=== PATIENT | female | born 1950 | race Caucasian/White ===

== ENCOUNTER 2024-10-18 11:04 | Outpatient (CLI) | payer MEDICARE ==
--- NOTE | 2024-10-18 14:25 | RADIOLOGY REPORT ---
CLINICAL HISTORY: Acute left knee injury. COMPARISON: None TECHNIQUE: Multisequence multiplanar MRI images of the left knee were obtained without contrast. FINDINGS: Cruciate ligaments: Edema along the course of the ACL with mild indistinctness of the ACL fibers, may be seen with mucoid degeneration or sequela of chronic sprain. No secondary signs of acute ACL injur y. PCL is intact. Extensor mechanism: Quadriceps mechanism and patellar tendon are intact. Collateral ligaments: Medial and lateral collateral ligaments are intact and otherwise unremarkable. Menisci: Attenuated, indistinct fibers of the posterior horn/ posterior root junction of the medial m eniscus, suspected obliquely oriented tear, although limited visualization due to motion artifact. Mi ld intrasubstance degeneration in the body of the medial meniscus. Suspected tear of the posterior ho rn/ posterior root junction of the lateral meniscus. There is also intrasubstance degeneration in the body of the lateral meniscus. Cartilage: Chondral thinning in all 3 compartments with superimposed areas of mild fraying and fissur ing. No focal chondral defect visualized Bones: No acute fracture or focal marrow contusion. Joint fluid: Small joint effusion. Other: Motion artifact limits evaluation. Probable ganglion cyst of the superior aspect of the interc ondylar region measuring up to 0.8 cm. IMPRESSION: 1. Motion limited study. 2. Suspected tears of the posterior horn/posterior root junction of the medial and lateral menisci as described above. 3. Edema along the course of the ACL with mild indistinctness of the ACL fibers, likely due to mucoid degeneration or chronic sprain. 4. Probable ganglion cyst at the superior aspect of the intercondylar region. 5. Additional findings as described above.
== END 2024-10-18 23:59 | disposition home or self-care (01) ==
LOC: MRI 11:04
PROVIDERS: ATTEND Internal Medicine
DX: S83.105D Unspecified dislocation of left knee, subsequent encounter (principal); S83.242D Other tear of medial meniscus, current injury, left knee, subsequent encounter; R60.0 Localized edema; S83.207D Unspecified tear of unspecified meniscus, current injury, left knee, subsequent encounter; M25.462 Effusion, left knee; R29.898 Other symptoms and signs involving the musculoskeletal system; X58.XXXD Exposure to other specified factors, subsequent encounter
CPT/HCPCS: 73721